=== PATIENT | female | born 1980 | race Two or more races ===

== ENCOUNTER → 2024-10-24 | Outpatient (CLI) | payer MEDICAID, SELFPAY ==
--- NOTE | 2024-10-24 16:45 | XR_ITS ---
MRI shoulder, right, without contrast. Date and time: October 24, 2024 at 1458 hours INDICATIONS: Right shoulder pain weakness beginning 4 months ago Technique: Multiple axial, sagittal and coronal sections of the shoulder have been obtained. Siemens high-resolution 1.5 Marlene MRI scanner is utilized. Axial fat-suppressed sections, TR 2350, TE 18 T2-weighted coronal fat-saturated images, TR 3500, TE 7100 T1-weighted coronal images, TR 500, TE 15 T2-weighted sagittal fat-saturated images, TR 3500, TE 57 T1-weighted sagittal sections, TR 504, TE 13. Findings: Supraspinatus tendon insertion is intact. Infraspinatus tendon insertion is intact. Subscapularis insertion is intact. Subscapularis bursa is not seen. Long head of the biceps is in the bicipital groove. No definite tear of the biceps superior labral anchor is seen. Retraction of the musculotendinous junction of the rotator cuff is not seen . Tendinosis pattern is mild. Distance between the acromium and humeral head is 4.7 mm Atrophy of the supraspinatus muscle is mild . Atrophy of the infraspinatus muscle is not seen. Sagittal sections demonstrate a horizontal acromion. Acromioclavicular joint demonstrates mild osteoarthritis . Osacromiale is not identified. Labral margins intact. Bony glenoid fossa on the sagittal sections does not demonstrate osseous defect. Occult fracture or area of avascular necrosis is not seen. Acromioclavicular joint separation is not visible. Defect in the posterolateral margin of the humeral head is not seen Impression: Rotator cuff impingement syndrome Mild rotator cuff tendinosis Rotator cuff and labral margins are intact
== END | disposition home or self-care (01) ==
DX: M75.101 Unspecified rotator cuff tear or rupture of right shoulder, not specified as traumatic (principal); M67.813 Other specified disorders of tendon, right shoulder
CPT/HCPCS: 73221

== ENCOUNTER 2025-01-01 22:23 | Emergency (ER) | payer MEDICAID, SELFPAY ==
[2025-01-01 22:24] VITALS: BMI 31.6
[2025-01-01 22:35] VITALS: BP 116/76; PULSE 85; RESP 20; TEMP 36.4; O2SAT 99
--- NOTE | 2025-01-01 23:04 | XR_ITS ---
Examination: AP chest single view TECHNIQUE: AP upright portable chest single view Date and time: January 01, 2025 11:24 PM INDICATIONS: Chest pain shortness of breath today. FINDINGS: Normal heart size. No lobar pneumonia. No pulmonary edema. The osseous structures are intact IMPRESSION: No active disease
--- NOTE | 2025-01-01 23:05 | PD.EDRME ---
Rapid Medical Screening Exam RME Arrival date/time: 01/01/25 22:23 44F with no significant PMH presents to ED with 2 days of intermittent CP that radiates to neck/jaw and shoulder, as well as some SOB. Patient denies URI symptoms. Chief Complaint: Chest Pain Time Seen by Provider: 01/01/25 23:35 Vital signs: Vital Signs Temperature 97.5 F 01/01/25 22:35 Pulse Rate 85 01/01/25 22:35 Respiratory Rate 20 01/01/25 22:35 Blood Pressure 116/76 01/01/25 22:35 Pulse Oximetry (%) 99 01/01/25 22:35 Oxygen Delivery Method Room Air 01/01/25 22:35
[2025-01-01 23:31] LABS: Basophils # (Auto) 0.0 Thou/mm3 (0.0-0.2); Basophils % (Auto) 1 % (0-2.5); Eosinophils # (Auto) 0.2 Thou/mm3 (0.0-0.5); Eosinophils % (Auto) 2 % (0-10); Hematocrit 38.5 % (36.0-46.0); Hemoglobin 12.6 g/dL (12.0-16.0); Immature Granulocytes Auto 0.02 Thou/mm3 (0.00-0.00); Lymphocytes # (Auto) 3.0 Thou/mm3 (1.0-4.8); Lymphocytes % (Auto) 45 % (10-50); Mean Corpuscular HGB Conc 32.7 g/dl (31.0-37.0); Mean Corpuscular Hemoglobin 27.2 pg (25.0-35.0); Mean Corpuscular Volume 83 fL (80-100); Monocytes # (Auto) 0.6 Thou/mm3 (0.0-0.8); Monocytes % (Auto) 8 % (0-12); Neutrophils # (Auto) 2.8 Thou/mm3 (1.8-7.7); Neutrophils % (Auto) 43 % (37-80); Nucleated Red Blood Cell # 0.00 Thou/mm3 (0.00-0.00); Nucleated Red Blood Cell % 0 /100 WBC (0); Platelet Count 242 Thou/mm3 (140-440); RDW Standard Deviation 38.4 fL (36.4-46.3); Red Blood Count 4.64 Miln/mm3 (4.00-5.20); White Blood Count 6.5 Thou/mm3 (3.6-11.0)
[2025-01-01 23:53] LABS: Alanine Aminotransferase 7 U/L (10-49); Albumin, Serum 4.1 gm/dL (3.5-5.0); Albumin/Globulin Ratio 1.9 (1.2-2.2); Alkaline Phosphatase 57 U/L (46-116); Anion Gap 9 (7-16); Aspartate Amino Transferase 12 U/L (0-34); BUN/Creatinine Ratio 18 Ratio (12-20); Bilirubin,Total 0.4 mg/dL (0.3-1.2); Blood Urea Nitrogen 11 mg/dL (9-23); Calcium 9.3 mg/dL (8.3-10.6); Calcium (Corrected) 9.3 mg/dL (8.5-10.1); Carbon Dioxide 24.9 mMol/L (20.0-31.0); Chloride 106 mMol/L (98-107); Creatinine (Component) 0.6 mg/dL (0.6-1.3); Estimated Creatinine Clearance 119.5 mL/min (>60); Globulin 2.2 gm/dL (2.3-3.5); Glucose 93 mg/dL (74-106); Lipase 49 U/L (12-53); Osmolality,Calculated 278 (275-295); Potassium 4.0 mMol/L (3.4-5.1); Sodium 140 mMol/L (136-145); Total Protein 6.3 gm/dL (5.7-8.2); Troponin I < 0.002 ng/mL (0.0-0.045); eGFR > 60 See Note
--- NOTE | 2025-01-02 01:27 | PD.EDCHEST ---
ED Chest Pain RME/HPI General Chief Complaint: Chest Pain Stated Complaint: CHEST PAIN SOB Time Seen by Provider: 01/01/25 23:35 Arrival date/time: 01/01/25 22:23 RME / HPI RME / HPI narrative: 01/01/25 22:23 44F with no significant PMH presents to ED with 2 days of intermittent CP that radiates to neck/jaw and shoulder, as well as some SOB. Patient denies URI symptoms. DR. 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 Reported mild shortness of breath, palpitations, and lightheadedness. No change with exertion and pleuritic component? Cardiac risk factors negative for HTN, DM, family history pf heart disease, or elevated cholesterol. PE risk factors include no recent prolonged immobility/travel. Denies recent surgery, tobacco use, personal or family history of DVT or hormonal therapy. Chronic venous insufficiency. PSHx noncontributory. Social history negative for alcoholism and tobacco use. Related Data Home Medications ?Medication ?Instructions ?Recorded ?Confirmed acetaminophen 325 mg tablet 325 mg PO QID PRN 05/01/23 05/08/23 (Tylenol) jzqspxzthiaum-[id number]-[id number] 5 10 ml PO Q4H PRN 05/01/23 05/08/23 mg-10 mg-100 mg/5 mL oral liquid (Adult Robitussin Peak Cold M-S) loratadine 10 mg tablet 10 mg PO QDAY 05/08/23 05/08/23 Previous Rx's ?Medication ?Instructions ?Recorded azithromycin 250 mg tablet See Rx Instructions PO .COMPLEX #6 05/01/23 tabs hydrocodone 5 mg-acetaminophen 325 1 tab PO Q8H PRN pain #12 tabs 01/02/25 mg tablet naproxen 250 mg tablet 250 mg PO BID PRN pain #10 tabs 01/02/25 omeprazole magnesium 10 mg oral 20 mg PO BID 14 days #30 ea 01/02/25 suspension,delayed release (Prilosec) Allergies Allergy/AdvReac Type Severity Reaction Status Date / Time No Known Allergies Allergy Verified 01/01/25 22:27 Review of Systems Review of Systems Systems Reviewed: All systems reviewed, normal except as documented ED Exam Narrative Physical exam: GEN. APPEARANCE: The patient is alert awake oriented X-3 in no distress, lying down comfortably, does not look ill/toxic. Patient has good eye contact. Patient is cooperative. VITALS: All vitals were reviewed and the pulse ox is 99% on room air which is normal according to my interpretation. HEENT: Normocephalic, atraumatic. Pupils are equal and reactive. Oral mucosa is moist. Patent Nares NECK: Supple, nontender, no thyromegaly, no meningismus, no JVD, no step offs CHEST: Symmetrical, atraumatic, and with equal expansion, chest wall no reproductive tenderness on palpation no deformity and no crepitus. CARDIOVASCULAR: Heart regular rhythm no murmur or gallop rub or extra beats. No late systolic click. LUNGS: Clear to auscultation bilaterally with symmetrical chest rise. No laboring tachypnea or wheezing. No intercostal subcostal retraction. No rales and no rhonchi. ABDOMEN: Soft, flat, nontender to palpation, no guarding or rebound tenderness. There are no abnormal masses palpated. Active and normal bowel sounds. EXTREMITIES: Nontender. No edema. No cyanosis. Patient is able to move all 4 extremities well, with full ROM and good CSM. SKIN: Warm and dry, no jaundice or rashes noted. MUSCULOSKELETAL: No lubar or midline bony tenderness. There is no CVA tenderness. No paraspinal muscle spasm or tenderness. NEURO: Patient is ANDREW x 4, Cranial nerves II through XII grossly intact. There is no focal neurologic deficits noted. 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 PSYCHIATRIC: Patient is in normal mood and affect, cooperative, no SI or HI or hallucinations. Course Quality Measures none Orders Category Date Time Status CT Screening NOW Care 01/02/25 02:[address] Screening NOW Care 01/02/25 03:05 Completed EKG (ED ONLY) *Do not use* NOW Care 01/01/25 22:[address] angio chest Stat Exams 01/02/25 03:04 Taken EKG (ED Only) Stat Exams 01/01/25 22:36 Ordered XR chest 1V portable Stat Exams 01/01/25 23:04 Completed CBC Stat Lab 01/01/25 23:12 Completed Comprehensive Metabolic Panel Stat Lab 01/01/25 23:12 Completed D-Dimer Stat Lab 01/02/25 01:37 Completed Lipase Stat Lab 01/01/25 23:12 Completed Troponin I Stat Lab 01/01/25 23:12 Completed Vital Signs Vital signs: Vital Signs Temperature 97.5 F 01/01/25 22:35 Pulse Rate 85 01/01/25 22:35 Respiratory Rate 20 01/01/25 22:35 Blood Pressure 116/76 01/01/25 22:35 Pulse Oximetry (%) 99 01/01/25 22:35 Oxygen Delivery Method Room Air 01/01/25 22:35 Chest Pain MDM Narrative MDM Narrative:: Scribe Attestation: Martha Bonilla, am scribing for and in the presence of Dr. Russo. Provider Notation: Although this document has been carefully reviewed, there may still be some phonetic and other typographical errors. These errors are purely grammatical due to imperfections in the software program and should not be construed in any way to? compromise the substance of the patient's medical care during this visit. 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 Reported mild shortness of breath, palpitations, and lightheadedness. Please see PE findings. Laboratory findings including CBC and serum chemistries were unremarkable. Patient placed on hospital monitor and underwent cardiac workup without signs of ischemia, infarction or pericardidtis. D-Dimer markedly elevated prompting CTA of chest, which failed to demonstrate evidence of PE, but hyper-dense lesion within the liver will require further characterization. Patient will be discharged home and treated conservatively. Diagnoses include non-specific chest pain and liver mass. Disposition prescribed Naprocin ad Prilosec with precautionary instructions issued. Patient data External records reviewed:: [facility] previous records (Reviewed prior ED records from 12/06/23. Patient was seen for Abdominal pain.) Clinical information provided by:: patient Social determinants that could affect healthcare access:: none Patient has the following chronic illnesses:: None reported How is presenting disease/condition affected by chronic disease/condition?: no chronic disease Evaluation data The following diagnostics were reviewed and interpreted by me:: lab results, radiology exam(s) and EKG tracing(s) Lab and/or radiology exams considered but not ordered:: None Interpretation Summary: RADIOLOGY Chest X-Ray: FINDINGS: Normal heart size. No lobar pneumonia. No pulmonary edema. The osseous structures are intact IMPRESSION: No active disease Chest CTA: Pending official radiology report. Medications / Prescriptions Medications or Prescriptions considered but not ordered:: None Medication administrations:: See above if any. Consultations Consultation(s) initiated? (list below): No Diagnosis Chest Pain Differential Diagnosis: fracture of rib, pneumothorax, stable angina, unstable angina pectoris, atypical chest pain, st elevation myocardial infarction, costochondritis, chest pain and biliary colic Most likely diagnosis given after review of the tests above:: Nonspecific chest pain, Liver mass, Acute nonspecific chest pain with low risk of coronary artery disease, Lesion of liver Admission Indicated Admission indicated?: not indicated Explain why admission is indicated or not indicated:: Patient does not meet admission criteria. Admission Request Was there a request for admission?: No Disposition Plan Disposition Plan: Discharge Discharge Attestation Discharge Attestation: The patient and all family members were given an opportunity to ask questions and understood the discharge instructions. Discharge instructions specifically effects, indications for sooner follow up or return to the emergency department, and the expected course of current diagnosis. Patient condition: Stable Discharge Plan Plan Patient Disposition: HOME (Self Care) Discharge Disposition comment: stable Patient condition on transfer: Stable Prescriptions/Referrals Prescriptions/Med Rec: New hydrocodone-acetaminophen 5-325 mg tablet 1 tab PO Q8H MDD 3 tab PRN (Reason: pain) Qty: 12 0RF naproxen 250 mg tablet 250 mg PO BID PRN (Reason: pain) Qty: 10 0RF Prilosec 10 mg susp,delayed release for recon 20 mg PO BID 14 Days Qty: 30 0RF No Action acetaminophen [Tylenol] 325 mg tablet 325 mg PO QID PRN Adult Robitussin Peak Cold M-S 5-10-100 mg/5 mL liquid 10 ml PO Q4H PRN azithromycin 250 mg tablet See Rx Instructions PO .COMPLEX Qty: 6 0RF Rx Instructions: For 250 mg dose pack: take 500 mg today (day 1), then 250 mg for 4 days (days 2-5) PO loratadine 10 mg tablet 10 mg PO QDAY Referrals: Jefe Thornton MD [Primary Care Provider] - In 1 week Problem List Clinical Impression: Nonspecific chest pain, Liver mass, Acute nonspecific chest pain with low risk of coronary artery disease, Lesion of liver Patient/Caregiver Discharge Instructions Discharge Activity: activity as tolerated Diet Instructions: Reduce caffeine and nicotine. Education Materials: ED Chest Pain, Uncertain Cause Additional Instructions: Medications as directed. Follow-up with primary care doctor for consideration of additional studies as relates to abnormality within the liver. Return if worsening Print Language: Serbian Stand Alone Forms: [employer] Award Info., Patient Portal Info Letter
[2025-01-02 01:49] VITALS: BP 103/63; PULSE 958; RESP 14; TEMP 37; O2SAT 99
[2025-01-02 02:26] LABS: D-Dimer 1400 ng/mL (<600)
--- NOTE | 2025-01-02 03:04 | XR_ITS ---
Examination: CTA chest with intravenous contrast 2-D reconstructions 3-D reconstructions, vascular Date and time of exam: January 02, 2025, 0320 hours INDICATIONS: Onset chest pain shortness of breath beginning 2 days ago CTDI: vol (mGy) 12.83 DLP: (mGycm) 320 Technique: Multiple axial sections of the thorax have been obtained. 3 mm slice thickness, from below the hemidiaphragms to above the apices of the lungs. Mediastinal and lung density settings have been obtained. 2-D sagittal and coronal reconstructions. 3-D angiographic renderings, 3-D volume renderings, 3D post processing, vascular maximum intensity projections obtained. Contrast administered is 100 cc [id number] intravenous. Low dose protocols were performed. One or more of the following dose reduction techniques were used; automated exposure control, adjustment of the mA and/or KV according to patient size, use of iterative reconstruction technique. Findings: No thoracic aortic aneurysm dilatation. No pulmonary artery filling defects. No paratracheal tracheobronchial or bronchopulmonary adenopathy No pneumonia or pulmonary edema or pleural disease Probable liver cysts Spleen not enlarged No gallstones No pancreatic mass No hydronephrosis IMPRESSION: Negative for pulmonary artery emboli. No pneumonia or pulmonary edema. Recommend hepatic sonography to confirm benign liver cysts
[2025-01-02 03:07] VITALS: BP 124/77; PULSE 98; RESP 14; TEMP 37; O2SAT 99
--- NOTE | 2025-01-02 04:46 | PRELIM_ITS ---
CT angiogram of the chest with intravenous contrast (axial sections with sagittal and coronal reformats) January 02, 2025 0320 hours Clinical History: R/o PE Technique:Helical axial sections with sagittal and coronal reformats of the chest were obtained with intravenous contrast. Iterative reconstruction technique was employed to reduce patient radiation exposure. 3D/MIP reconstructed images were also provided. Comparison: None. Findings: There is no filling defect within the pulmonary artery divisions to suggest pulmonary thromboembolism. The mediastinum demonstrates no evidence of mass or lymphadenopathy. The thoracic aorta is unremarkable. There is no pericardial effusion. The lungs are clear. No evidence of pleural effusion or pneumothorax. The osseous structures are unremarkable. Hypodense lesion in segment 4 of the liver measures 2.7 cm. Dilated left atrium. Impression: No CT evidence of pulmonary thromboembolism. Hypodense liver lesion, consider follow-up with MRI for characterization. Dilated left atrium. Report Electronically Signed By: David Urias 01/02/2025 4:45:41 AM [EST]
[2025-01-02 05:12] VITALS: BP 110/86; PULSE 85; RESP 14; TEMP 37; O2SAT 99
== END 2025-01-02 05:13 | disposition home or self-care (01) ==
PROVIDERS: Physician Assistant; Emergency Provider Emergency Medicine; PCP Family Medicine
DX: R07.89 Other chest pain (principal); R16.0 Hepatomegaly, not elsewhere classified; K76.9 Liver disease, unspecified; R42 Dizziness and giddiness; R06.02 Shortness of breath
CPT/HCPCS: 36415; 71045; 71275; 80053; 83690; 84484; 85025; 85379; 93005; 99284; A4649; Q9967

== ENCOUNTER 2025-03-03 07:28 | Day surgery (SDC) | payer MEDICAID, SELFPAY ==
[2025-03-02 10:59] LABS: HCG Qualitative,Urine Negative
[2025-03-02 13:42] VITALS: BMI 31.5
[2025-03-03] VITALS (9 sets, daily range): BP systolic 106–134; BP diastolic 68–97; PULSE 93–149; RESP 17–25; TEMP 36.2–36.9; O2SAT 96–100; BMI 32.1
[2025-03-03] MEDS: RINGERS LACTATED 500 ML 500 ML 20 ML IV (09:50)
[2025-03-03] MEDS: BENZOCAINE 20% (Hurricaine) SPRAY 1 DOSE TOP (09:50)
[2025-03-03] MEDS: MIDAZOLAM INJ 1 MG/ML VIAL 2 ML (ASD USE ONLY) 2 MG IVP (09:50)
[2025-03-03] MEDS: fentaNYL CIT INJ 50 mCg/ML AMP 2ML (ASD USE ONLY) IVP (09:50)
--- NOTE | 2025-03-03 11:12 | SUR.PHASEII ---
1025 Pt more awake and alert. Denies pain, N/V or difficulty swallowing. Nathan PO fluids. 1043 Pt assessment unchanged. No complaints. Amb with steady gait. Able to dress self. Dr Zarate spoke with pt and . Questions answered. DC instructions given. Pt and both state understanding. Pt meets dc criteria-to home.
== END 2025-03-03 10:43 | disposition home or self-care (01) ==
PROVIDERS: PCP Family Medicine; Referring Provider Internal Medicine Gastroenterology; Visit Provider Internal Medicine Gastroenterology
PROC: (CPT 43239; principal; 2025-03-03 08:00)
DX: K29.50 Unspecified chronic gastritis without bleeding (principal); K31.89 Other diseases of stomach and duodenum
CPT/HCPCS: 43239; 81025; A4649; J1200; J2250; J3010; J7120; A9270